=== PATIENT | female | born 1945 | race Caucasian/White ===

== ENCOUNTER 2017-04-19 08:32 | Outpatient (CLI) | payer MEDICARE, BC ==
--- NOTE | 2017-04-20 09:26 | Mammography Report ---
DIGITAL BILATERAL SCREENING MAMMOGRAM: 04/19/2017 CLINICAL HISTORY: Patient has no family history of breast cancer. Patient has had no prior breast s urgeries. COMPARISON: 08/02/2007, 08/17/2010, 01/17/2012, 02/24/2016, 03/23/2016 TECHNIQUE: Craniocaudad and oblique lateral views of each breast were obtained with [facility]ie [facility] digital mammography. FINDINGS: Breast parenchyma consists of scattered fibroglandular densities. Few scattered benign-ap pearing calcifications are noted in each breast. No significant masses are noted. No change is seen . IMPRESSION: BREASTS APPEAR RADIOGRAPHICALLY BENIGN. BIRADS CATEGORY 1 - NEGATIVE. RECOMMENDATIONS: Annual bilateral screening mammography. STANDARD QUALIFYING STATEMENTS 1. This examination was reviewed with the aid of Computer-Aided Detection (CAD). 2. A negative or benign imaging report should not delay biopsy if clinically suspicious findings are present. Consider surgical consultation if warranted. More than 5% of cancers are not identified by i maging. 3. Dense breasts may obscure an underlying neoplasm. JOB #: [id number] EXT JOB #:[id number]
== END 2017-04-19 08:33 | disposition home or self-care (01) ==
LOC: DI 08:32
PROVIDERS: ATTEND Registered Nurse
DX: Z12.31 Encounter for screening mammogram for malignant neoplasm of breast (principal)
CPT/HCPCS: 77067

== ENCOUNTER 2017-04-19 08:35 | Outpatient (CLI) | payer MEDICARE, BC ==
--- NOTE | 2017-04-20 13:50 | DEXA Report ---
DEXA BONE MINERAL DENSITY SCAN: 04/19/2017 CLINICAL HISTORY: A 72-year-old postmenopausal female. TECHNIQUE: Dual energy x-ray absorptiometry (DXA) was performed on a Zetta[employer] system. Regions measured are the AP spine, femoral neck, and, if needed, forearm. COMPARISON: None. In accordance with the International Society for Clinical Densitometry (ISCD) guidelines, data from previous exams may be reanalyzed using current recommendations and techniques. This is done to allow a more accurate basis for comparison with the current study. FINDINGS: L1 through L4 bone mineral density is 1.138 grams/square cm for a T- score of -0.4. This is within normal limits according to World Health Organization guidelines. Left hip total bone mineral density is 0.976 grams/square cm for a T-score of - 0.3. This is within normal limits according to World Health Organization guidelines. Left femoral neck bone mineral density is 0.842 grams/square cm for a T-score of -1.4. This is consistent with osteopenia according to World Health Organization guidelines. The data for the lumbar spine is as follows: REGION BMD (g/cm/cm) T-SCORE Z-SCORE L1 0.977 -1.3 0.2 L2 1.181 -0.2 1.3 L3 1.185 -0.1 1.3 L4 1.186 -0.1 1.3 TOTAL 1.138 -0.4 1.1 NOTE: All evaluable vertebrae are used for classification. The data for the hip is as follows: REGION BMD (g/cm/cm) T-SCORE Z-SCORE Neck 0.842 -1.4 0.2 TOTAL 0.976 -0.3 1.1 NOTE: The femoral neck or total proximal femur, whichever is lowest, is used for classification. IMPRESSION: THE WHO CLASSIFICATION BASED ON THE INTERNATIONAL REFERENCE STANDARD IS OSTEOPENIA. THE FRACTURE RISK IS INCREASED. RECOMMENDATION: Patients with diagnosis of osteoporosis or osteopenia should have regular bone mineral density assessment. For those eligible for Medicare, routine testing is allowed once every 2 years. Testing frequency can be increased for patients who have rapidly progressing disease or for those who are receiving medical therapy to restore bone mass. COMMENT: World Health Organization (WHO) definitions for osteoporosis and osteopenia: NORMAL BMD: T-score at -1.0 or higher, fracture risk is low. OSTEOPENIA BMD: T-score between -1.0 and -2.5, fracture risk is increased. OSTEOPOROSIS BMD: T-score at -2.5 or lower, fracture risk high. National Osteoporosis Foundation recommends: 1. Obtain adequate dietary calcium (at least 1200 mg per day) and vitamin D (400 -800 international units per day). 2. Participate, as appropriate, in regular weightbearing and muscle- strengthening exercise. 3. Avoid tobacco use and reduce alcohol and caffeine intake. 4. For more detailed information see the website at www.NOF.org. MTDD
== END 2017-04-19 08:36 | disposition home or self-care (01) ==
LOC: DI 08:35
PROVIDERS: ATTEND Registered Nurse
DX: Z13.820 Encounter for screening for osteoporosis (principal); N95.8 Other specified menopausal and perimenopausal disorders; M85.80 Other specified disorders of bone density and structure, unspecified site
CPT/HCPCS: 77080

== ENCOUNTER 2017-11-11 13:48 | Outpatient (CLI) | payer MEDICARE, BC ==
[2017-11-11 18:23] LABS: ALBUMIN 4.2 g/dL (3.2-5.5); ALKALINE PHOSPHATASE 50 IU/L (42-121); ALT ALANINE AMINOTRANSFERASE 15 IU/L (10-60); AST ASPARTATE AMINOTRANSFERASE 17 IU/L (10-42); BILIRUBIN,TOTAL 0.4 mg/dL (0.2-1.0); TOTAL PROTEIN 7.4 g/dL (6.7-8.2)
[2017-11-11 19:03] LABS: BILIRUBIN,DIRECT < 0.1 mg/dL (0.1-0.5)
== END 2017-11-11 13:49 | disposition home or self-care (01) ==
LOC: LAB.F 13:48
PROVIDERS: ATTEND Nurse Practitioner
DX: Z79.899 Other long term (current) drug therapy (principal)
CPT/HCPCS: 36415; 80076

== ENCOUNTER 2018-03-23 08:05 | Outpatient (CLI) | payer MEDICARE, BC ==
[2018-03-23 12:02] LABS: CREATININE 0.7 mg/dL (0.4-1.0)
== END 2018-03-23 08:06 | disposition home or self-care (01) ==
LOC: LAB.F 08:05
PROVIDERS: ATTEND Physician Assistant Medical
DX: B35.1 Tinea unguium (principal); Z79.899 Other long term (current) drug therapy
CPT/HCPCS: 36415; 82565; 84450; 84460

== ENCOUNTER 2018-05-08 08:40 | Outpatient (CLI) | payer MEDICARE, BC ==
[2018-05-08 19:18] LABS: ALBUMIN 3.9 g/dL (3.2-5.5); ALBUMIN/GLOBULIN RATIO 1.1 (1.0-2.2); ALKALINE PHOSPHATASE 47 IU/L (42-121); ALT ALANINE AMINOTRANSFERASE 20 IU/L (10-60); AST ASPARTATE AMINOTRANSFERASE 22 IU/L (10-42); BILIRUBIN,TOTAL 0.7 mg/dL (0.2-1.0); BUN - BLOOD UREA NITROGEN 14 mg/dL (6-20); CALCIUM 9.2 mg/dL (8.5-10.3); CARBON DIOXIDE - CO2 30 mmol/L (21-32); CHLORIDE 100 mmol/L (101-111); CHOL/HDL RATIO 3.5 (<4.4); CHOLESTEROL 208 mg/dL; CREATININE 0.5 mg/dL (0.4-1.0); GFR - MDRD 121 (>89); GLUCOSE 105 mg/dL (70-100); HDL CHOLESTEROL 60 mg/dL; LDL CHOLESTEROL,CALCULATED 123 mg/dL; LDL/HDL RATIO 2.1 (<4.4); SODIUM 137 mmol/L (135-145); TOTAL PROTEIN 7.3 g/dL (6.7-8.2); VLDL CHOLESTEROL 25 mg/dL
[2018-05-08 20:26] LABS: HB2 TOTAL 14.1 g/dL; HEMOGLOBIN A1C 0.56 g/dL; HEMOGLOBIN A1C % 5.8 % (4.6-6.2)
== END 2018-05-08 08:41 | disposition home or self-care (01) ==
LOC: LAB.F 08:40
PROVIDERS: ATTEND Registered Nurse
DX: I10 Essential (primary) hypertension (principal)
CPT/HCPCS: 36415; 80053; 80061; 82306; 83036; 83721

== ENCOUNTER 2019-10-05 14:00 | Outpatient (CLI) | payer MEDICARE, BC ==
--- NOTE | 2019-10-10 13:51 | Mammography Report ---
Reason: ROUTINE MAMMO Procedure Date: 10/05/2019 Accession Number: [id number] / [id number] Procedure: VEDA - Screening Mammo w/Samuel CPT Code: Final Report FULL RESULT: EXAM: Screening Mammo w/Samuel DATE: 10/05/2019 2:52 PM CLINICAL HISTORY: The patient is an asymptomatic 74-year-old female. No reported personal history of breast cancer. TECHNIQUE: (B) - Bilateral CC and MLO views were obtained. COMPARISON: 04/19/2017, 02/24/2016, 01/17/2012 and 08/17/2010 PARENCHYMAL PATTERN: (D) - The breasts demonstrate heterogeneously dense fibroglandular parenchyma bilaterally. FINDINGS: The pattern of asymmetry is stable given positional variation. Few benign calcifications again noted. There are no suspicious masses, calcifications, or areas of distortion. IMPRESSION: Negative examination. BI-RADS category 1. RECOMMENDATION: (ANNUAL) - Recommend routine annual screening mammography. BI-RADS CATEGORY: (1) - Negative. STANDARD QUALIFYING STATEMENTS: A negative or benign imaging report should not preclude biopsy if clinically suspicious findings are present. Dense breasts may obscure an underlying neoplasm. This examination was reviewed with the aid of 3D breast imaging (tomosynthesis).
== END 2019-10-05 14:01 | disposition home or self-care (01) ==
LOC: DI 14:00
PROVIDERS: ATTEND Nurse Practitioner Family
DX: Z12.31 Encounter for screening mammogram for malignant neoplasm of breast (principal)
CPT/HCPCS: 77063; 77067

== ENCOUNTER 2021-02-25 09:00 | Outpatient (CLI) | payer MEDICARE, BC ==
--- NOTE | 2021-02-26 11:29 | Mammography Report ---
BILATERAL DIGITAL SCREENING MAMMOGRAM 3D/2D: 02/25/2021 CLINICAL: Routine screening. Comparison is made to exams dated: 10/05/2019 mammogram, 04/19/2017 mammogram, 03/23/2016 mammogram, 02/01 mammogram, 01/17/2012 mammogram, and 08/17/2010 mammogram - [facility]. Ther e are scattered fibroglandular elements in both breasts. No significant masses, calcifications, or other findings are seen in either breast. There has been no significant interval change. IMPRESSION: NEGATIVE There is no mammographic evidence of malignancy. A 1 year screening mammogram is recommended. This exam was interpreted at Station ID: [id number]. NOTE: For mammograms, a report in lay terms will be sent to the patient. Approximately 15% of breast malignancies will not be visualized mammographically. In the management of a palpable breast mass, a negative mammogram must not discourage biopsy of a clinically suspicious lesion. Electronically Signed By: Oneal Boothe M.D. atvalerie/[email or web address]:02/25/2021 10:15:00 ACR BI-RADS Category 1: Negative 3341F PARENCHYMAL PATTERN: (A) - The breast(s) demonstrate(s) scattered fibroglandular densities. BI-RADS CATEGORY: (1) - 1 RECOMMENDATION: (ANNUAL) - Recommend routine annual screening mammography. [id number] 1 year screening LATERALITY: (B)
== END 2021-02-25 09:01 | disposition home or self-care (01) ==
LOC: DI 09:00
PROVIDERS: ATTEND Registered Nurse
DX: Z12.31 Encounter for screening mammogram for malignant neoplasm of breast (principal)

== ENCOUNTER 2022-10-13 13:31 | Outpatient (CLI) | payer MEDICARE, BC ==
--- NOTE | 2022-10-13 17:11 | DEXA Report ---
PROCEDURE: Dexa Spine and/or Hip INDICATIONS: OSTEOPENIA TECHNIQUE: Dual energy x-ray absorptiometry (DXA) was performed on a Acturis System. Regions measur ed are the AP Spine, femoral neck, and if needed forearm. COMPARISON: 04/19/2017. FINDINGS: Lumbar Spine: Bone Mineral Density 1.152 g/cm/cm,T score -0.2, normal Left Femoral Neck: Bone Mineral Density 0.799 g/cm/cm, T score -1.7, osteopenia Left Hip: Bone Mineral Density 0.930 g/cm/cm,T score -0.6, normal (T score greater or equal to -1.0: NORMAL) (T score from -1.1 to -2.4: OSTEOPENIA) (T score less than or equal to -2.5 to: OSTEOPOROSIS) Impression: Based on WHO criteria, the patient has osteopenia. Compared with the last exam dated 04/19/2017, the p shreyas's bone mineral density in left hip has decreased by 4.7%. Her bone mineral density lumbar spin e is unchanged. Patients with diagnosis of osteoporosis or osteopenia should have regular bone mineral density assess ment. For those eligible for Medicare, routine testing is allowed once every 2 years. Testing frequ ency can be increased for patients who have rapidly progressing disease or for those who are receivin g medical therapy to restore bone mass. Reviewed by: Vashti Feliciano MD on 10/13/2022 5:10 PM PST Approved by: Vashti Feliciano MD on 10/13/2022 5:10 PM PST Station ID: [id number]
== END 2022-10-13 13:32 | disposition home or self-care (01) ==
LOC: DI 13:31
PROVIDERS: ATTEND Registered Nurse
DX: M85.88 Other specified disorders of bone density and structure, other site (principal)

== ENCOUNTER 2022-10-13 13:31 | Outpatient (CLI) | payer MEDICARE, BC ==
--- NOTE | 2022-10-14 10:35 | Mammography Report ---
BILATERAL DIGITAL SCREENING MAMMOGRAM 3D/2D: 10/13/2022 CLINICAL: Routine screening. Comparison is made to exams dated: 02/25/2021 mammogram, 10/05/2019 mammogram, 04/19/2017 mammogram, 03/04 mammogram, and 02/24/2016 mammogram - [facility]. There are scattered areas of fibroglandular density in both breasts (category b / 25%-50% glandular t issue). No significant masses, calcifications, or other findings are seen in either breast. There has been no significant interval change. IMPRESSION: NEGATIVE There is no mammographic evidence of malignancy. A 1 year screening mammogram is recommended. Based on the Tyrer Cuzick model (a risk assessment model) the patients lifetime risk is 2.3% and her 10 year risk is 0.0%. According to the ACR, ACS, and NCCN guidelines, an annual breast MRI exam libra g with mammogram is recommended if the patients lifetime risk is 20% or greater. This exam was interpreted at Station ID: [id number]. NOTE: For mammograms, a report in lay terms will be sent to the patient. Approximately 15% of breast malignancies will not be visualized mammographically. In the management of a palpable breast mass, a negative mammogram must not discourage biopsy of a clinically suspicious lesion. Electronically Signed By: Oneal oneal/arianna:10/13/2022 17:02:17 ACR BI-RADS Category 1: Negative 3341F PARENCHYMAL PATTERN: (A) - The breast(s) demonstrate(s) scattered fibroglandular densities. BI-RADS CATEGORY: (1) - 1 RECOMMENDATION: (ANNUAL) - Recommend routine annual screening mammography. [id number] 1 year screening LATERALITY: (B)
== END 2022-10-13 13:32 | disposition home or self-care (01) ==
LOC: DI 13:31
PROVIDERS: ATTEND Registered Nurse
DX: Z12.31 Encounter for screening mammogram for malignant neoplasm of breast (principal)

== ENCOUNTER 2024-01-24 08:00 | Outpatient (CLI) | payer MEDICARE, BC | END 2024-01-24 23:59 | disposition home or self-care (01) | LOC: LAB.S 08:00 | PROVIDERS: ATTEND Registered Nurse | DX: N30.00 Acute cystitis without hematuria (principal) | CPT/HCPCS: 87086; 87181 ==

== ENCOUNTER 2024-03-01 11:14 | Outpatient (CLI) | payer MEDICARE, BC ==
[2024-03-01 14:41] LABS: BASOPHILS % (AUTO) 0.2 %; EOSINOPHILS % (AUTO) 0.1 %; HCT - HEMATOCRIT 37.4 % (37.0-47.0); HGB - HEMOGLOBIN 12.6 g/dL (12.0-16.0); LYMPHOCYTES # (AUTO) 1.9 10^3/uL (1.5-3.5); LYMPHOCYTES % (AUTO) 15.5 %; MEAN CORPUSCULAR HEMOGLOBIN 32.6 pg (27.0-31.0); MEAN CORPUSCULAR HGB CONC 33.7 g/dL (32.0-36.0); MEAN CORPUSCULAR VOLUME 96.6 fL (81.0-99.0); MEAN PLATELET VOLUME 9.4 fL (7.9-10.8); MONOCYTES # (AUTO) 0.7 10^3/uL (0.0-1.0); MONOCYTES % (AUTO) 5.5 %; NEUTROPHILS # (AUTO) 9.5 10^3/uL (1.5-6.6); NEUTROPHILS % (AUTO) 78.5 %; PLT - PLATELET COUNT 265 10^3/uL (130-450); RED BLOOD COUNT 3.87 10^6/uL (4.20-5.40); RED CELL DISTRIBUTION WIDTH 12.6 % (12.0-15.0); WHITE BLOOD COUNT 12.2 x10^3/uL (4.8-10.8)
[2024-03-01 15:42] LABS: ALBUMIN 4.1 g/dL (3.2-5.5); ALBUMIN/GLOBULIN RATIO 1.4 (1.0-2.2); BILIRUBIN,TOTAL 0.4 mg/dL (0.2-1.0); CALCIUM 9.8 mg/dL (8.5-10.3); CREATININE 0.6 mg/dL (0.6-1.3); CRP - C-REACTIVE PROTEIN 1.1 mg/dL (<0.5); POTASSIUM 3.3 mmol/L (3.5-4.5); TOTAL PROTEIN 7.1 g/dL (6.4-8.9)
--- NOTE | 2024-03-01 20:04 | XRAY Report ---
PROCEDURE: Wrist 1-2V RT INDICATIONS: RIGHT WRIST PAIN TECHNIQUE: 2 views of the wrist were acquired. COMPARISON: None. FINDINGS: Bones: No acute fractures or dislocations. No suspicious bony lesions. 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 Soft tissues: Amorphous calcification is seen volar to the wrist on lateral view only and cannot be further localized. Mild soft tissue edema surrounding the wrist. IMPRESSION: Nonspecific amorphous calcification along the volar aspect of the wrist seen on lateral view only. No acute osseous fracture identified. Reviewed by: Flako Bhatia MD on 03/01/2024 8:03 PM PDT Approved by: Flako Bhatia MD on 03/01/2024 8:03 PM PDT Station ID: [id number]
== END 2024-03-01 11:15 | disposition home or self-care (01) ==
LOC: DI.S 11:14
PROVIDERS: ATTEND Nurse Practitioner
DX: M25.531 Pain in right wrist (principal); M25.831 Other specified joint disorders, right wrist
CPT/HCPCS: 36415; 80053; 84550; 85025; 86140

== ENCOUNTER 2024-04-25 11:04 | Outpatient (CLI) | payer MEDICARE, BC ==
[2024-04-25] MEDS ORDERED: iohexoL-300 100 ML VIAL ONE (11:10)
[2024-04-25] MEDS: iohexoL-300 100 ML VIAL IVP ONE (12:57)
--- NOTE | 2024-04-25 21:46 | CT Report ---
PROCEDURE: Chest W INDICATIONS: SWELLING SUPRACLAVICULAR REGION CONTRAST: Omni 300 100ml TECHNIQUE: After the administration of intravenous contrast, a CT scan of the chest was performed. Images were recorded and evaluated at appropriate window settings. Reformats: axial MIP of the chest, coronal and sagittal. For radiation dose reduction, the following was used: automated exposure control, adjustme nt of mA and/or kV according to patient size. COMPARISON: Correlation is made with the accompanying imaging. FINDINGS: Image quality: Diagnostic. Chest wall and lower neck: No thyroid nodule which requires sonographic follow up. No breast mass. No axillary or supraclavicular adenopathy by size. Lungs and pleura: Mild patchy areas of groundglass opacity can be seen. Mild dependent atelectasis is also seen. No jazmine focal infiltrates are seen. No pleural effusions. No pneumothorax. No suspiciou s pulmonary nodules which require follow up. Mediastinum: Moderate to prominent coronary calcification is seen. Heart size is normal. No pericardi al effusion. No large vessel abnormality. No mediastinal adenopathy by size criteria. A small hiata l hernia is incidentally noted. Bones: No aggressive osseous abnormality. There are degenerative Upper Abdomen: Within the right liver dome, there is a simple cyst seen, measuring 13 mm. Mild infla mmatory change can be seen involving the central mesentery. The visualized portions of the upper abdo anju structures are otherwise within normal limits. IMPRESSION: Patchy ground glass opacities can be seen throughout the lungs. These are nonspecific, although pleas e consider pulmonary edema versus atypical infection. Inflammatory change is also possible. Generalized inflammatory change can be seen involving the central mesentery, which is only partially seen on the CT of the chest. The appearance is nonspecific, although this is commonly seen in patient s with underlying chronic infection. Additional findings: Moderate to prominent coronary artery calcification Small hiatal hernia Simple liver cyst Reviewed by: Fortino Lozada MD on 04/25/2024 8:44 PM OWEN Approved by: Fortino Lozada MD on 04/25/2024 8:44 PM OWEN Station ID: [id number]
--- NOTE | 2024-04-25 22:21 | CT Report ---
PROCEDURE: Soft Tissue Neck W INDICATIONS: SWELLING SUPRACLAVICULAR REGION CONTRAST: Omni 300 100ml TECHNIQUE: After the administration of intravenous contrast, 3.0 mm axial sections acquired from the sella to th e aortic arch. Additional oblique axial 3.0 mm sections acquired through the pharynx. 3 mm thick co cara reformats were generated. For radiation dose reduction, the following was used: automated exp osure control, adjustment of mA and/or kV according to patient size. COMPARISON: CT chest 04/25/2024. FINDINGS: Image quality: Excellent. Lymph nodes: No enlarged lymph nodes seen throughout the neck. Vessels: Visualized vasculature appears patent. Neck spaces: The oropharynx, nasopharynx, and pharynx demonstrate no mucosal lesions. The vocal cor ds, false vocal cords, pyriform sinuses, epiglottis, vallecula, and tongue base all appear normal. E xtramucosal spaces appear unremarkable. Glands: The parotid and submandibular glands appear normal. Low-attenuation foci are present within the thyroid gland the largest measuring 1.1 cm on the left. No remote priors. Miscellaneous: Visualized brain and orbits appear normal. Lung apices demonstrate scattered groundg lass opacities. Superficial soft tissues appear normal. Bones: No suspicious bony lesions. Visualized sinuses and mastoids appear unremarkable. IMPRESSION: No visualized cause of supraclavicular edema. Thyroid foci as above. Given size, thyroid ultrasound is recommended for further evaluation. Minimal appearance of groundglass opacities within the lungs. See CT chest report of 04/25/2024 for fu rther details. CLINICAL RECOMMENDATION STATEMENTS: In patients <35 years with an ITN detected on CT, MRI, or extrathyroidal ultrasound, the Committee re commends further evaluation with dedicated thyroid ultrasound if the nodule is "e1 cm and has no susp icious imaging features, and if the patient has normal life expectancy. In patients "e35 years with an ITN detected on CT, MRI, or extrathyroidal ultrasound, the Committee r ecommends further evaluation with dedicated thyroid ultrasound if the nodule is "e1.5 cm and has no s uspicious imaging features, and if the patient has normal life expectancy. (ACR, 2014) Reviewed by: Zulema Shaikh MD on 04/25/2024 10:19 PM PDT Approved by: Zulema Shaikh MD on 04/25/2024 10:19 PM PDT Station ID: [id number]
== END 2024-04-25 11:05 | disposition home or self-care (01) ==
LOC: DI 11:04
PROVIDERS: ATTEND Registered Nurse
DX: R22.2 Localized swelling, mass and lump, trunk (principal); R22.1 Localized swelling, mass and lump, neck; E07.89 Other specified disorders of thyroid
CPT/HCPCS: 70491; 71260; Q9967